=== PATIENT | male | born 1970 | race Caucasian/White ===

== ENCOUNTER 2018-02-05 10:24 | Emergency (ER) | payer OTHER ==
[~2018-02-05] VITALS: Ht 185.4 cm; Wt 120.2 kg
[~2018-02-05 10:24] MED LIST: ACYCLOVIR 800800 M1 PO; CEFDINIR300 MG PO; CIPROFLOXACIN500 M1 PO; CORTISPORIN OTI10 ML OTIC; ERYTHROMYCIN E3.5 G1 OPHTHALMIC; FLAGYL500 MG PO; FLONASE 0.05%50 MCG NASAL; IBUPROFEN 400400 M2 PO; IBUPROFEN 800800 M1 PO; IBUPROFEN 800800 MG PO; LEVAQUIN 500 M500 MG PO; LORTAB 5 MG/5001 TA1 PO; MAGNESIUM OXID400 MG PO; NOHOMEMEDICATIONS; PREDNISONE 20 M20 MG PO; PROVENTIL HFA6.7 G1 INH; TYLENOL COLD H1 EACH PO; UNICOMPLEX M TA1 TA1 PO; VITAMIN D1000 UNI1 PO; VITAMINC500 PO; ZINC50 M1 PO; ZPAK PO
[2018-02-05] MEDS ORDERED: PREDNISONE 5 MG5 M1 PO (11:14)
[2018-02-05] MEDS ORDERED: PREDNISONE 10 M10 M1 PO (11:51)
[2018-02-05 12:18] VITALS: BP 145/69
== END 2018-02-05 12:18 | disposition home or self-care (01) ==
LOC: ER 10:24
DX: M06.862 Other specified rheumatoid arthritis, left knee (principal); M06.861 Other specified rheumatoid arthritis, right knee; J45.909 Unspecified asthma, uncomplicated; Z88.0 Allergy status to penicillin

== ENCOUNTER 2018-08-23 21:17 | Emergency (ER) | payer BC ==
[~2018-08-23] VITALS: Ht 185.4 cm; Wt 120.2 kg
[~2018-08-23 21:17] MED LIST changes: +PREDNISONE 10 M10 M1 PO; +PREDNISONE 5 MG5 M1 PO
[2018-08-23] MEDS ORDERED: PREDNISONE 10 M10 MG PO (21:30)
[2018-08-23] MEDS ORDERED: [UNRECOGNIZED DRUG - OTHER] (21:31)
[2018-08-23] MEDS ORDERED: [UNRECOGNIZED DRUG - OTHER] (21:31)
[2018-08-23 21:57] LABS: MCH 30.9 pg (26.0-34.0); MCHC 35.7 g/dL (28.0-37.0); MCV 86.5 fL (80.0-100.0); PLATELET COUNT 157 thou/uL (150-400); RBC 4.85 mil/uL (4.50-6.00); RDW 13.9 % (10.5-14.5); WBC 4.3 thou/uL (4.0-11.0)
[2018-08-23 22:08] LABS: CREATININE 1.2 mg/dL (0.7-1.3); POTASSIUM 3.9 mmol/L (3.5-5.1)
[2018-08-23 22:13] LABS: ALBUMIN 3.6 g/dL (3.4-5.0); CALCIUM 8.6 mg/dL (8.5-10.1); TOTAL BILIRUBIN 0.6 mg/dL (<0.1-1.0); TOTAL PROTEIN 7.5 g/dL (6.4-8.2)
[2018-08-23 22:50] LABS: ABSOLUTE NEUTROPHILS 2.7 thou/uL (1.4-8.2); BLASTS 1 %; METAMYELOCYTES 3 %; MYELOCYTES 2 %
[2018-08-23 22:51] LABS: LARGE PLATELETS RARE
[2018-08-23] MEDS ORDERED: BENTYL 20 MG TA20 M1 PO (23:43)
[2018-08-23] MEDS ORDERED: CIPRO500 MG PO (23:44)
[2018-08-23] MEDS ORDERED: FLAGYL500 M1 PO (23:44)
[2018-08-23 23:48] LABS: URINE BILIRUBIN NEGATIVE (Negative); URINE BLOOD NEGATIVE (Negative); URINE CLARITY CLEAR; URINE COLOR YELLOW; URINE GLUCOSE-RANDOM* NEGATIVE (Negative); URINE KETONES NEGATIVE (Negative); URINE LEUKOCYTES-REFLEX NEGATIVE (Negative); URINE NITRITE-REFLEX NEGATIVE (Negative); URINE PROTEIN (DIPSTICK) NEGATIVE (Negative); URINE UROBILINOGEN 0.2 E.U./dl (0.2-1.0)
[2018-08-24 00:12] VITALS: BP 128/82
== END 2018-08-24 00:14 | disposition home or self-care (01) ==
LOC: ER 21:17
PROVIDERS: Nurse Practitioner Family
DX: K57.92 Diverticulitis of intestine, part unspecified, without perforation or abscess without bleeding (principal); N48.9 Disorder of penis, unspecified; J45.909 Unspecified asthma, uncomplicated; Z88.0 Allergy status to penicillin

== ENCOUNTER 2018-11-17 10:50 | Emergency (ER) | payer OTHER ==
[~2018-11-17] VITALS: Ht 185.4 cm; Wt 108.9 kg
[~2018-11-17 10:50] MED LIST changes: +BENTYL 20 MG TA20 M1 PO; +CIPRO500 MG PO; +FLAGYL500 M1 PO; +PREDNISONE 10 M10 MG PO; +[UNRECOGNIZED DRUG - OTHER]; +[UNRECOGNIZED DRUG - OTHER]
[2018-11-17] MEDS ORDERED: MEDROLDOSEPACK PO (11:21)
[2018-11-17 12:25] VITALS: BP 130/82
== END 2018-11-17 11:58 | disposition home or self-care (01) ==
LOC: ER 10:50
DX: M05.89 Other rheumatoid arthritis with rheumatoid factor of multiple sites (principal); J45.909 Unspecified asthma, uncomplicated; Z88.0 Allergy status to penicillin

== ENCOUNTER 2019-02-28 13:23 | Emergency (ER) | payer OTHER ==
[~2019-02-28] VITALS: Ht 177.8 cm; Wt 127.0 kg
[~2019-02-28 13:23] MED LIST changes: +MEDROLDOSEPACK PO
--- NOTE | 2019-02-28 14:01 | EKG ---
[place] [address] [facility] [place] [employer] [address] ELECTROCARDIOGRAM REPORT Name: PORSHA CLARKE [facility] [id number] ������������������ Admission: ������������������ Attend Phys: Discharge: ������������������ Date of : 70 Report #: [id number] ����������������������������������������������������������������� [id number] THIS REPORT FOR: //name// [facility] ED Test Date: 2019-02-28 Test Time: 13:30:28 Pat Name: PORSHA CLARKE Department: Room: Gender: M Interior Specialist: MARTHA : 1970 Requested By: Chester Molina Order Number: [id number] MD: Yobani Lord Measurements Intervals [place] Rate: 85 P: 38 [place]: 162 QRS: -45 QRSD: 87 T: 87 QT: 358 QTc: 426 Interpretive Statements Sinus rhythm RSR' in V1 or V2, probably normal variant Inferior infarct, old Lateral leads are also involved Compared to ECG 10/11/2014 02:40:42 RSR' in V1 or V2 now present Myocardial infarct finding now present Incomplete right bundle-branch block no longer present Electronically Signed On 02-28-2019 14:01:08 CDT by Yobani Lord [email or web address] ��������������������������������������������� <ELECTRONICALLY SIGNED> ���������������������������������������� By: Yobani Lord MD ��������������������������������������������� 02/28/19 1401 1330 1330 Yobani Lord MD /EPI
[2019-02-28 14:16] LABS: HEMATOCRIT 37.8 % (42.0-52.0); HEMOGLOBIN 12.7 gm/dL (14.0-18.0); MCHC 33.8 g/dL (28.0-37.0); MCV 85.8 fL (80.0-100.0); PLATELET COUNT 158 thou/uL (150-400); RDW 14.6 % (10.5-14.5); WBC 2.9 thou/uL (4.0-11.0)
[2019-02-28 14:26] LABS: PROTIME 9.4 Seconds (9.3-11.4)
[2019-02-28 14:33] LABS: ANION GAP 6 mmol/L (7-16); BUN 9 mg/dL (7-18); CHLORIDE 106 mmol/L (98-107); CO2 32 mmol/L (21-32); CREATININE 0.9 mg/dL (0.7-1.3); GLUCOSE 135 mg/dL (74-106); SODIUM 144 mmol/L (136-145)
[2019-02-28 14:44] LABS: ALBUMIN 3.2 g/dL (3.4-5.0); LIPASE 142 U/L (73-393); SGOT 15 U/L (15-37); SGPT 42 U/L (30-65); TOTAL BILIRUBIN 0.4 mg/dL (<0.1-1.0); TOTAL PROTEIN 7.2 g/dL (6.4-8.2); TROPONIN-I <0.06 ng/mL (<0.06)
[2019-02-28 14:53] LABS: ABSOLUTE NEUTROPHILS 1.9 thou/uL (1.4-8.2); ANISOCYTOSIS 1+
[2019-02-28] MEDS ORDERED: PREDNISONE 20 M20 MG PO (16:33)
[2019-02-28] MEDS ORDERED: VENTOLIN HFA 1818 GM INH (16:43)
[2019-02-28] MEDS ORDERED: REGLAN 5 MG TAB5 MG PO (16:57)
[2019-02-28 17:04] VITALS: BP 129/79
== END 2019-02-28 17:04 | disposition home or self-care (01) ==
LOC: ER 13:23
PROVIDERS: Physician Assistant
DX: R06.02 Shortness of breath (principal); R14.0 Abdominal distension (gaseous); J45.909 Unspecified asthma, uncomplicated; Z87.39 Personal history of other diseases of the musculoskeletal system and connective tissue; Z88.0 Allergy status to penicillin

== ENCOUNTER 2019-08-30 00:14 | Emergency (ER) | payer BC, OTHER ==
[~2019-08-30] VITALS: Ht 185.4 cm; Wt 124.7 kg
[~2019-08-30 00:14] MED LIST changes: +REGLAN 5 MG TAB5 MG PO; +VENTOLIN HFA 1818 GM INH
[2019-08-30 00:57] LABS: HEMATOCRIT 36.7 % (42.0-52.0); HEMOGLOBIN 12.4 gm/dL (14.0-18.0); MCH 29.1 pg (26.0-34.0); MCHC 33.8 g/dL (28.0-37.0); MCV 86.1 fL (80.0-100.0); RBC 4.26 mil/uL (4.50-6.00); RDW 14.2 % (10.5-14.5)
[2019-08-30 00:58] LABS: WBC 1.9 thou/uL (4.0-11.0)
[2019-08-30 01:05] LABS: CREATININE 1.1 mg/dL (0.7-1.3); POTASSIUM 3.7 mmol/L (3.5-5.1)
[2019-08-30 01:11] LABS: ALBUMIN 3.3 g/dL (3.4-5.0); TOTAL BILIRUBIN 0.8 mg/dL (<0.1-1.0); TOTAL PROTEIN 7.1 g/dL (6.4-8.2)
[2019-08-30] MEDS ORDERED: CLINDAMYCIN HC300 MG PO (02:46)
[2019-08-30 02:57] VITALS: BP 111/47
== END 2019-08-30 03:00 | disposition home or self-care (01) ==
LOC: ER 00:14
PROVIDERS: Emergency Medicine
DX: L03.116 Cellulitis of left lower limb (principal); J45.909 Unspecified asthma, uncomplicated; Z98.890 Other specified postprocedural states; Z88.0 Allergy status to penicillin

== ENCOUNTER 2019-10-24 11:55 | Emergency (ER) | payer OTHER ==
[~2019-10-24] VITALS: Ht 185.4 cm; Wt 120.2 kg
[~2019-10-24 11:55] MED LIST changes: +CLINDAMYCIN HC300 MG PO
[2019-10-24 11:57] VITALS: BP 130/84
[2019-10-24] MEDS ORDERED: DOXYCYCLINE 10100 MG PO (12:32)
== END 2019-10-24 12:50 | disposition home or self-care (01) ==
LOC: ER 11:55
DX: J18.9 Pneumonia, unspecified organism (principal); J45.909 Unspecified asthma, uncomplicated; Z98.890 Other specified postprocedural states; Z88.0 Allergy status to penicillin

== ENCOUNTER 2019-11-13 11:52 | Emergency (ER) | payer OTHER ==
[~2019-11-13] VITALS: Ht 185.4 cm; Wt 120.2 kg
[~2019-11-13 11:52] MED LIST changes: +DOXYCYCLINE 10100 MG PO
[2019-11-13 11:53] VITALS: BP 123/88
[2019-11-13 12:49] LABS: HEMATOCRIT 42.6 % (42.0-52.0); MCH 27.9 pg (26.0-34.0); MCHC 32.8 g/dL (28.0-37.0); MCV 85.2 fL (80.0-100.0); PLATELET COUNT 220 thou/uL (150-400); RDW 14.1 % (10.5-14.5); WBC 2.7 thou/uL (4.0-11.0)
[2019-11-13 12:59] LABS: CALCIUM 8.6 mg/dL (8.5-10.1); CREATININE 1.1 mg/dL (0.7-1.3); POTASSIUM 3.5 mmol/L (3.5-5.1)
[2019-11-13] MEDS ORDERED: PREDNISONE 10 M10 MG PO (13:45)
[2019-11-13 14:11] LABS: ABSOLUTE NEUTROPHILS 1.8 thou/uL (1.4-8.2); ANISOCYTOSIS 1+; MYELOCYTES 1 %
== END 2019-11-13 14:08 | disposition home or self-care (01) ==
LOC: ER 11:52
PROVIDERS: Physician Assistant
DX: I77.6 Arteritis, unspecified (principal); M06.9 Rheumatoid arthritis, unspecified; J45.909 Unspecified asthma, uncomplicated; Z79.2 Long term (current) use of antibiotics; Z79.899 Other long term (current) drug therapy; Z88.0 Allergy status to penicillin

== ENCOUNTER 2019-12-13 05:30 | Emergency (ER) | payer OTHER ==
[~2019-12-13] VITALS: Ht 185.4 cm; Wt 120.2 kg
[2019-12-13] MEDS ORDERED: VENTOLIN HFA 1818 GM INH (06:04)
[2019-12-13] MEDS ORDERED: PREDNISONE 10 M10 M1 PO (06:04)
[2019-12-13] MEDS ORDERED: DOXYCYCLINE 10100 MG PO (06:04)
[2019-12-13 06:14] VITALS: BP 129/85
== END 2019-12-13 06:15 | disposition home or self-care (01) ==
LOC: ER 05:30
DX: M13.861 Other specified arthritis, right knee (principal); M13.862 Other specified arthritis, left knee; J45.909 Unspecified asthma, uncomplicated; Z88.0 Allergy status to penicillin

== ENCOUNTER 2019-12-28 19:35 | Emergency (ER) | payer OTHER ==
[~2019-12-28] VITALS: Ht 185.4 cm; Wt 120.2 kg
[2019-12-28] MEDS ORDERED: CLEOCIN HCL150 MG PO (20:04)
[2019-12-28] MEDS ORDERED: PREDNISONE 20 M20 MG PO (20:04)
[2019-12-28 21:13] VITALS: BP 137/89
== END 2019-12-28 21:15 | disposition home or self-care (01) ==
LOC: ER 19:35
DX: L03.115 Cellulitis of right lower limb (principal); M05.20 Rheumatoid vasculitis with rheumatoid arthritis of unspecified site; J45.909 Unspecified asthma, uncomplicated; Z88.0 Allergy status to penicillin

== ENCOUNTER 2020-01-01 11:28 | Emergency (ER) | payer OTHER ==
[~2020-01-01] VITALS: Ht 180.3 cm; Wt 117.0 kg
[~2020-01-01 11:28] MED LIST changes: +CLEOCIN HCL150 MG PO
[2020-01-01 12:36] LABS: HEMATOCRIT 41.8 % (42.0-52.0); HEMOGLOBIN 14.2 gm/dL (14.0-18.0); MCH 28.7 pg (26.0-34.0); MCHC 34.1 g/dL (28.0-37.0); MCV 84.3 fL (80.0-100.0); PLATELET COUNT 200 thou/uL (150-400); RBC 4.95 mil/uL (4.50-6.00); RDW 14.7 % (10.5-14.5); WBC 9.3 thou/uL (4.0-11.0)
[2020-01-01 12:42] LABS: CALCIUM 8.6 mg/dL (8.5-10.1); CREATININE 1.2 mg/dL (0.7-1.3)
[2020-01-01 12:51] LABS: ABSOLUTE NEUTROPHILS 7.8 thou/uL (1.4-8.2); ATYPICAL LYMPHS 1 %; PLATELET ESTIMATE NORMAL
[2020-01-01] MEDS ORDERED: PREDNISONE 20 M20 MG PO (13:33)
[2020-01-01] MEDS ORDERED: GLUMETZA500 PO (13:38)
[2020-01-01 13:46] VITALS: BP 144/84
== END 2020-01-01 13:46 | disposition home or self-care (01) ==
LOC: ER 11:28
PROVIDERS: Emergency Medicine
DX: I77.6 Arteritis, unspecified (principal); R73.9 Hyperglycemia, unspecified; M06.9 Rheumatoid arthritis, unspecified; J45.909 Unspecified asthma, uncomplicated; Z98.890 Other specified postprocedural states; Z79.899 Other long term (current) drug therapy; Z79.2 Long term (current) use of antibiotics; Z88.0 Allergy status to penicillin

== ENCOUNTER 2020-03-25 14:31 | Emergency (ER) | payer OTHER ==
[~2020-03-25] VITALS: Ht 185.4 cm; Wt 119.8 kg
[~2020-03-25 14:31] MED LIST changes: +GLUMETZA500 PO
[2020-03-25 14:34] VITALS: BP 120/96
[2020-03-25] MEDS ORDERED: PREDNISONE 20 M20 M1 PO (15:18)
== END 2020-03-25 15:54 | disposition home or self-care (01) ==
LOC: ER 14:31
DX: M06.842 Other specified rheumatoid arthritis, left hand (principal); M06.841 Other specified rheumatoid arthritis, right hand; M06.862 Other specified rheumatoid arthritis, left knee; M06.861 Other specified rheumatoid arthritis, right knee; J45.909 Unspecified asthma, uncomplicated; Z88.0 Allergy status to penicillin; Z79.899 Other long term (current) drug therapy; Z79.2 Long term (current) use of antibiotics

== ENCOUNTER 2020-06-27 15:36 | Emergency (ER) | payer OTHER ==
[~2020-06-27] VITALS: Ht 185.4 cm; Wt 120.2 kg
[~2020-06-27 15:36] MED LIST changes: +PREDNISONE 20 M20 M1 PO
[2020-06-27 16:34] LABS: HEMATOCRIT 38.6 % (42.0-52.0); MCH 29.4 pg (26.0-34.0); MCHC 33.8 g/dL (28.0-37.0); MCV 87.2 fL (80.0-100.0); PLATELET COUNT 102 thou/uL (150-400); RBC 4.42 mil/uL (4.50-6.00)
[2020-06-27 16:44] LABS: CALCIUM 8.5 mg/dL (8.5-10.1); CREATININE 1.3 mg/dL (0.7-1.3); POTASSIUM 3.4 mmol/L (3.5-5.1)
[2020-06-27 16:47] LABS: INR 1.1; PROTIME 10.8 Seconds (9.3-11.4)
[2020-06-27 16:50] LABS: ALBUMIN 3.5 g/dL (3.4-5.0); TOTAL BILIRUBIN 1.3 mg/dL (0.2-1.0); TOTAL PROTEIN 7.7 g/dL (6.4-8.2)
[2020-06-27 17:05] LABS: ABSOLUTE NEUTROPHILS 1.4 thou/uL (1.4-8.2)
[2020-06-27 18:46] VITALS: BP 117/70
[2020-06-27] MEDS ORDERED: NORCO 5-325 TA1 EAC2 PO (18:49)
[2020-06-27] MEDS ORDERED: PREDNISONE 10 M10 M1 PO (18:49)
[2020-06-27] MEDS ORDERED: KEFLEX500 M1 PO (18:49)
== END 2020-06-27 18:55 | disposition home or self-care (01) ==
LOC: ER 15:36
PROVIDERS: Physician Assistant
DX: L03.115 Cellulitis of right lower limb (principal); I77.6 Arteritis, unspecified; J45.909 Unspecified asthma, uncomplicated; Z79.899 Other long term (current) drug therapy; Z88.0 Allergy status to penicillin

== ENCOUNTER 2020-07-14 10:00 | Emergency (ER) | payer OTHER ==
[~2020-07-14] VITALS: Ht 185.4 cm; Wt 117.9 kg
[~2020-07-14 10:00] MED LIST changes: +CLOTRIMAZOLE-BE15 GM TOP; +KEFLEX500 M1 PO; +NORCO 5-325 TA1 EAC2 PO
[2020-07-14 11:37] LABS: HEMOGLOBIN 12.7 gm/dL (14.0-18.0); MCH 29.6 pg (26.0-34.0); MCHC 34.3 g/dL (28.0-37.0); MCV 86.5 fL (80.0-100.0); PLATELET COUNT 197 thou/uL (150-400); RBC 4.28 mil/uL (4.50-6.00); RDW 13.9 % (10.5-14.5)
[2020-07-14 11:45] LABS: CALCIUM 8.1 mg/dL (8.5-10.1); CREATININE 1.2 mg/dL (0.7-1.3); POTASSIUM 3.8 mmol/L (3.5-5.1)
[2020-07-14 11:52] LABS: ALBUMIN 3.5 g/dL (3.4-5.0); DIRECT BILIRUBIN 0.2 mg/dL (<0.1-0.2); TOTAL BILIRUBIN 0.6 mg/dL (0.2-1.0); TOTAL PROTEIN 7.9 g/dL (6.4-8.2)
[2020-07-14 13:19] LABS: ABSOLUTE NEUTROPHILS 1.1 thou/uL (1.4-8.2); ANISOCYTOSIS SLIGHT
[2020-07-14] MEDS ORDERED: DOXYCYCLINE 10100 MG PO (14:58)
[2020-07-14] MEDS ORDERED: LASIX 40 MG TAB40 MG PO (15:02)
[2020-07-14 15:08] VITALS: BP 120/72
== END 2020-07-14 15:19 | disposition home or self-care (01) ==
LOC: ER 10:00
PROVIDERS: Nurse Practitioner
DX: I77.6 Arteritis, unspecified (principal); J45.909 Unspecified asthma, uncomplicated; Z79.899 Other long term (current) drug therapy; Z88.0 Allergy status to penicillin

== ENCOUNTER 2020-09-13 12:56 | Emergency (ER) | payer OTHER ==
[~2020-09-13] VITALS: Ht 185.4 cm; Wt 113.4 kg
[~2020-09-13 12:56] MED LIST changes: +LASIX 40 MG TAB40 MG PO
[2020-09-13 13:46] LABS: HEMATOCRIT 39.2 % (42.0-52.0); HEMOGLOBIN 13.1 gm/dL (14.0-18.0); MCHC 33.5 g/dL (28.0-37.0); MCV 83.7 fL (80.0-100.0); PLATELET COUNT 135 thou/uL (150-400); RBC 4.69 mil/uL (4.50-6.00); RDW 14.8 % (10.5-14.5)
[2020-09-13 13:49] LABS: WBC 0.7 thou/uL (4.0-11.0)
[2020-09-13 14:02] LABS: CALCIUM 8.9 mg/dL (8.5-10.1); CREATININE 1.3 mg/dL (0.7-1.3); POTASSIUM 3.5 mmol/L (3.5-5.1)
[2020-09-13 14:08] LABS: ALBUMIN 3.8 g/dL (3.4-5.0); TOTAL BILIRUBIN 1.8 mg/dL (0.2-1.0); TOTAL PROTEIN 7.9 g/dL (6.4-8.2)
[2020-09-13 14:36] LABS: ABSOLUTE NEUTROPHILS 0.2 thou/uL (1.4-8.2); ATYPICAL LYMPHS 2 %
[2020-09-13] MEDS ORDERED: ZPAK PO (16:16)
[2020-09-13] MEDS ORDERED: PREDNISONE 20 M20 M1 PO (16:16)
[2020-09-13] MEDS ORDERED: PROMETH-CODEIN 65 ML PO (16:16)
[2020-09-13 16:23] VITALS: BP 136/75
[2020-09-14] MEDS ORDERED: ELIQUIS5 M1 PO (20:03)
== END 2020-09-13 16:23 | disposition home or self-care (01) ==
LOC: ER 12:56
PROVIDERS: Physician Assistant
DX: M31.30 Wegener's granulomatosis without renal involvement (principal); K12.1 Other forms of stomatitis; J32.9 Chronic sinusitis, unspecified; J45.909 Unspecified asthma, uncomplicated; Z79.899 Other long term (current) drug therapy; Z88.0 Allergy status to penicillin

== ENCOUNTER 2020-09-14 16:19 | Emergency (ER) | payer OTHER ==
[~2020-09-14] VITALS: Ht 185.4 cm; Wt 113.4 kg
[~2020-09-14 16:19] MED LIST changes: +PROMETH-CODEIN 65 ML PO
[2020-09-14 17:32] LABS: HEMOGLOBIN 13.3 gm/dL (14.0-18.0); PLATELET COUNT 151 thou/uL (150-400)
[2020-09-14 17:33] LABS: HEMATOCRIT 39.6 % (42.0-52.0); MCH 28.4 pg (26.0-34.0); MCHC 33.7 g/dL (28.0-37.0); MCV 84.1 fL (80.0-100.0); RBC 4.71 mil/uL (4.50-6.00); RDW 14.9 % (10.5-14.5)
[2020-09-14 17:42] LABS: CALCIUM 8.8 mg/dL (8.5-10.1); CREATININE 1.5 mg/dL (0.7-1.3); POTASSIUM 3.5 mmol/L (3.5-5.1)
[2020-09-14 17:48] LABS: ALBUMIN 3.9 g/dL (3.4-5.0); TOTAL BILIRUBIN 1.5 mg/dL (0.2-1.0); TOTAL PROTEIN 8.2 g/dL (6.4-8.2)
[2020-09-14 17:56] LABS: ABSOLUTE NEUTROPHILS 0.1 thou/uL (1.4-8.2)
[2020-09-14 17:57] LABS: ANISOCYTOSIS 1+; LARGE PLATELETS OCCASIONAL; POLYCHROMASIA SLIGHT
[2020-09-14] MEDS ORDERED: ELIQUIS5 M1 PO (20:03)
[2020-09-14 20:15] VITALS: BP 129/73
--- NOTE | 2020-09-17 07:21 | EKG ---
[place] [address] [place] [address] ELECTROCARDIOGRAM REPORT Name: PORSHA CLARKE Room #: [facility] ZIGGY Moran#: [id number] Admission: 09/14/20 Attend Phys: Discharge: 09/14/20 Date of : 70 Report #: [id number] [facility] ED Test Date: 2020-09-14 Test Time: 17:30:47 Pat Name: PORSHA CLARKE Department: Room: Gender: M Sorority Supervisor: JENNIFER : 1970 Requested By: Chester Molina Order Number: [id number] MD: Enrique Seay Measurements Intervals [place] Rate: 98 P: 24 [place]: 157 QRS: -76 QRSD: 95 T: 37 QT: 389 QTc: 497 Interpretive Statements Sinus rhythm Inferior infarct, old Compared to ECG 02/28/2019 13:30:28 T wave abnormality is less prominent Electronically Signed On 09-17-2020 7:21:40 BACTERIOLOGIST [employer] by Enrique Seay [email or web address] <ELECTRONICALLY SIGNED> By: Enrique Seay MD, [facility] 09/17/20 0721 1730 1730 Enrique Seay MD, FAC /EPI
== END 2020-09-14 20:27 | disposition left against medical advice (07) ==
LOC: ER 16:19
PROVIDERS: Physician Assistant
DX: I26.99 Other pulmonary embolism without acute cor pulmonale (principal); J32.9 Chronic sinusitis, unspecified; D61.818 Other pancytopenia; M31.30 Wegener's granulomatosis without renal involvement; J45.909 Unspecified asthma, uncomplicated; Z79.899 Other long term (current) drug therapy; Z88.0 Allergy status to penicillin; Z20.828 Contact with and (suspected) exposure to other viral communicable diseases

== ENCOUNTER 2020-09-15 18:52 | Inpatient (IN) | payer MEDICAID ==
[~2020-09-15] VITALS: Ht 185.4 cm; Wt 119.3 kg
[~2020-09-15 18:52] MED LIST changes: +ELIQUIS5 M1 PO
[2020-09-15 18:55] VITALS: BP 143/74
[2020-09-15 20:06] LABS: HEMATOCRIT 36.4 % (42.0-52.0); HEMOGLOBIN 12.4 gm/dL (14.0-18.0); MCH 28.7 pg (26.0-34.0); MCV 84.4 fL (80.0-100.0); PLATELET COUNT 137 thou/uL (150-400); RBC 4.32 mil/uL (4.50-6.00); RDW 14.6 % (10.5-14.5)
[2020-09-15 20:09] LABS: CALCIUM 8.4 mg/dL (8.5-10.1); CREATININE 1.2 mg/dL (0.7-1.3); POTASSIUM 3.6 mmol/L (3.5-5.1)
[2020-09-15 20:26] LABS: APTT 31.6 Seconds (24.5-32.8)
[2020-09-15 21:11] VITALS: BP 102/45
[2020-09-15 21:18] LABS: ABSOLUTE NEUTROPHILS 0.1 thou/uL (1.4-8.2); ATYPICAL LYMPHS 2 %
[2020-09-15 21:19] LABS: ANISOCYTOSIS 1+; LARGE PLATELETS OCCASIONAL; POLYCHROMASIA OCCASIONAL
[2020-09-15 22:00] VITALS: BP 107/47
[2020-09-15 22:15] VITALS: BP 121/75
--- NOTE | 2020-09-16 02:58 | NUR ---
RECIEVED PT FROM ED ARRIVAL TO UNIT PT ALERT ORIENTED X4 , PT DENIES SOA , UP AMBULATED TO BATHROOM , PRESSER ALL AROUND NSR NOTED VSS, DISCUSSED PLAN OF CARE, PT VERBALIZED UNDERSTANDING AND AGREEABLE, JUNIOR SHEPHERD
[2020-09-16 04:45] VITALS: BP 126/75
[2020-09-16 12:16] VITALS: BP 126/80
[2020-09-16 15:03] VITALS: BP 124/76
[2020-09-16 20:34] VITALS: BP 115/72
[2020-09-16 20:42] VITALS: BP 102/45
[2020-09-17 03:37] LABS: HEMATOCRIT 35.9 % (42.0-52.0); MCH 28.2 pg (26.0-34.0); MCHC 33.4 g/dL (28.0-37.0); MCV 84.5 fL (80.0-100.0); RBC 4.25 mil/uL (4.50-6.00); RDW 14.8 % (10.5-14.5)
[2020-09-17 03:46] VITALS: BP 104/59
[2020-09-17 03:46] LABS: CALCIUM 8.3 mg/dL (8.5-10.1); POTASSIUM 4.1 mmol/L (3.5-5.1)
[2020-09-17 03:51] LABS: WBC 0.9 thou/uL (4.0-11.0)
--- NOTE | 2020-09-17 04:15 | NUR ---
PT IS ALERT AND ORIENTED X4 LUNGS ARE CLEAR . COMPLAINS OF PAIN IN HIS CHEECK LEFT ONE. PAIN MEDS GIVEN LITTLE RELIEF AND SOME SLEEP NOTED WITH PT AT THIS TIME. ABDOMEN IS SOFT. HAS NEUROPENIA TOO WITH LABS NOTED THIS AM. WILL REPORT CRITITICAL LAB NOTED. CALL LIGHT WITHIN REACH IF NEEDS ASISTANCE
[2020-09-17 07:38] VITALS: BP 118/81
[2020-09-17 08:24] LABS: % SATURATION 17 % (20-39); IRON 49 ug/dL (65-175); TIBC 284 ug/dL (250-450)
[2020-09-17 08:54] LABS: FOLIC ACID 6.4 ng/mL (8.6-58.9)
--- NOTE | 2020-09-17 10:46 | NUR ---
50 year old male presenting to the ED with worsening dyspnea. Pt was seen int the ED on the and of this month with oral ulcers and with dyspnea/diaphoresis, was found to have bilateral PE's but left AMA out of concern for health costs on 09-15-20. COVID PCR Negative on 09-14-20. Patient admitted to Hospitalist Dr. Huizar and is being treated for Bilateral small non-occlusive PE, Leucopenia, Asthma, oral lesions, Chronic neutropenia. Patient currently works at [employer] but does not have insurance. Patients lists his father Manny Murray at [phone] or [phone] as contact and next of kin but noted in the medical record the patient is documented as A&O x4. Notified Attending at 1045 of need for therapy orders to evaluate needs. CM will follow for discharge needs.
[2020-09-17 11:09] VITALS: BP 121/67
[2020-09-17 14:01] LABS: HEMATOCRIT 34.9 % (42.0-52.0); HEMOGLOBIN 11.8 gm/dL (14.0-18.0); MCH 28.3 pg (26.0-34.0); MCHC 33.7 g/dL (28.0-37.0); MCV 84.1 fL (80.0-100.0); PLATELET COUNT 129 thou/uL (150-400); RBC 4.15 mil/uL (4.50-6.00); RDW 14.6 % (10.5-14.5)
[2020-09-17 14:07] LABS: WBC 1.1 thou/uL (4.0-11.0)
[2020-09-17 14:51] LABS: ABSOLUTE NEUTROPHILS 0.3 thou/uL (1.4-8.2); ANISOCYTOSIS 1+; LARGE PLATELETS FEW; POLYCHROMASIA OCCASIONAL
[2020-09-17 15:55] VITALS: BP 123/73
[2020-09-17 20:36] VITALS: BP 130/73
--- NOTE | 2020-09-18 04:03 | NUR ---
Assumed pt care at 1900. Pt is alert and oriented. No sign of distress noted in pt. Pt verbalizes pain. Pain med administered upon request. Pt is ambulatory. Assessment completed and documented. Scheduled meds administered to pt. No acute events overnight. Continue to monitor. No further needs at this time.
[2020-09-18 04:19] VITALS: BP 124/87
--- NOTE | 2020-09-18 07:20 | HC ---
[facility] [place] [address] CONSULTATION Name: PORSHA CLARKE Room #: 209-P ADM IN M.R.#: [id number] Admission: 09/15/20 Attend Phys: Surinder Huizar MD Discharge: Date of : 70 Report #: [id number] THIS REPORT FOR: cc: FAM - No family physician/PCP FAM - No family physician/PCP Noe Aguilar MD ~ DATE OF SERVICE: 09/17/2020 REASON FOR CONSULTATION: Cytopenia of at least 10 years' duration. HISTORY OF PRESENT ILLNESS: The patient is a very pleasant 50-year-old from the [place] area, who was admitted to the Emergency Room for shortness of breath. On evaluation, found small nonocclusive bilateral PE. The patient notably has a history of low white count with an ANC in 2013 at 700, in 2014 ranged between 800 and 1200, in 2018 was 4300 on one measure, in 2019 was 1.9-2.9, on admission here 0.9. Hemoglobin has been stable, usually 12-13 or 14 during this time. Platelets in the past 135,000-200,000; recently 120,000 with no acute forms. The patient says that he was first found out about low blood counts in 2009 when he was at [facility]. He has also had trouble with infections requiring antibiotics 4-5 times a year, usually due to skin or sinus infections. He said someone had mentioned Oscar's, but he is not sure about that. Recently, he does have occasional headaches. No eye troubles. Does have some recent mouth sores on his left tip of tongue and right upper buccal mucosa, which he has not had before. No new blood in the urine or stool. Weight is about the same. He was aware of previous spleen and liver enlargement before. Also noted in 2014, he had cocaine positive on the urine drug screen. 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 SOCIAL HISTORY: No tobacco use. Had abused illicit drugs in the past, none recently. 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 He played basketball in high school. FAMILY HISTORY: Sperm donor dad ____ diabetes. Mother has psoriasis. I think he had mentioned one son without specific illnesses. MEDICATIONS: Here at this time in the hospital currently include apixaban 5 b.i.d., Benadryl p.r.n., lidocaine p.r.n., ____ magic mouthwash, also hydrocodone p.r.n., prednisone 40 with dinner, Pepcid 20 b.i.d., albuterol respiratory treatment, also the apixaban was begun as 10 b.i.d. for the first 14 [facility] [address] [place] [address] CONSULTATION Name: PORSAH CLARKE Vandana Room #: 209-P ADM IN M.R.#: [id number] Admission: 09/15/20 Attend Phys: Surinder Huizar MD Discharge: Date of : 70 Report #: [id number] doses, Zofran p.r.n. PHYSICAL EXAMINATION: GENERAL: The patient appears his stated age. VITAL SIGNS: Height is 6 feet 1 inch or 185.4 cm. Weight 263 pounds or 117.9 kilograms. Blood pressure is 118/81, O2 sat 97%, respirations 17, pulse 58, temperature afebrile at 97.7. MOOD: Alert, pleasant, conversant. NEUROLOGIC: Face is symmetrical. Speech and thought pattern normal. Moving all extremities. Oral notable for a small ulceration in the left tip of tongue and also right upper buccal mucosa. LYMPHATICS: No enlarged lymph nodes in the supraclavicular, cervical, axillary or inguinal region. ABDOMEN: Obese, maybe hepatomegaly, not sure about splenomegaly on exam. EXTREMITIES: Without clubbing or cyanosis. SKIN: Exam not performed today. LABORATORY DATA: As mentioned above. Also, note the liver functions were normal. Coags were normal. BUN 13, creatinine 1.0. Glucose 210. CT exam showed small nonocclusive bilateral pulmonary emboli and hepatosplenomegaly. Note that scan in 2019 showed a spleen of 17.4 cm, and in 2015, a spleen of 17 cm. ASSESSMENT AND PLAN: 1. Cytopenia, sounds autoimmune. We will consult Dr. Jagjit Holbrook for his thoughts. Could consider bone marrow biopsy. We will also check B12, folate, iron and do a peripheral smear review. 2. Bilateral nonocclusive pulmonary embolism. Agree with apixaban, but at least treat for 3-6 months. May consider longer lower dose after that if medically available due to chronic inflammation and high risk for future clots. 3. 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 The patient on steroids. We will defer to Dr. Holbrook and others. We will follow with you. <ELECTRONICALLY SIGNED> By: Noe Aguilar MD 09/18/20 0720 0810 0843 Noe Aguilar MD /olvin
[2020-09-18 08:11] VITALS: BP 117/69
[2020-09-18 10:35] LABS: HEMATOCRIT 36.2 % (42.0-52.0); HEMOGLOBIN 12.2 gm/dL (14.0-18.0); MCH 28.2 pg (26.0-34.0); MCHC 33.7 g/dL (28.0-37.0); MCV 83.8 fL (80.0-100.0); PLATELET COUNT 128 thou/uL (150-400); RBC 4.32 mil/uL (4.50-6.00); RDW 14.7 % (10.5-14.5)
[2020-09-18 10:45] LABS: PROTIME 10.6 Seconds (9.3-11.4)
[2020-09-18 10:55] LABS: ALBUMIN 3.2 g/dL (3.4-5.0); DIRECT BILIRUBIN 0.2 mg/dL (<0.1-0.2); TOTAL BILIRUBIN 0.7 mg/dL (0.2-1.0); TOTAL PROTEIN 7.1 g/dL (6.4-8.2); WBC 0.9 thou/uL (4.0-11.0)
[2020-09-18 11:22] LABS: ABSOLUTE NEUTROPHILS 0.2 thou/uL (1.4-8.2); METAMYELOCYTES 2 %; MYELOCYTES 1 %
[2020-09-18 11:23] LABS: ANISOCYTOSIS 1+
[2020-09-18 11:37] VITALS: BP 111/69
[2020-09-18 15:00] VITALS: BP 104/63
--- NOTE | 2020-09-18 17:04 | NUR ---
Met with patient who admits with bilateral PE. Patient resides alone and not employed. he is hoping to rec disability. Patient has no PCP. Gave clinic information and health resource guide. Requested he make apt prior to leaving hospital. Gave him information on Eliquis. Encouraged him to call their support line. [facility]ur will be able to assist initially.
--- NOTE | 2020-09-18 18:32 | NUR ---
RECEIVED PT'S CARE AROUND 0735; PT. ON BED; RESTING WITH EYES CLOSED; SLEEP INTERRUPTED; ALERT; DURING AM AOX4; C/O PAIN OVER R. CHEEK; PRN PAIN MEDICATION GIVEN WITH AM MEDICATIONS; PER DR. CORRALES HOLD BLOOD THINNER PO MEDICATION UNTIL BONE MARROW PERFORM ON 09/19/2019; ONE TIME LOVENOX GIVEN PER EMAR; PT. NOTIFIED; ST. UNDERSTANDING; GONE FOR CT DURING AM; PRN PAIN MEDICATION GIVEN THROUGH THE DAY; REASSESSMENT PT. ST. DECREASE PAIN FOR ABOUT ONE AND HALF HOURS AND PAIN RETURN; STOOL SAMPLE NEEDED; PT. NOTIFIED; ST. UNDERSTANDING; AMBULATED AROUND THE UNIT DURING THE EVENING; SR ON THE MONITOR; ASSESSMENT CHARGED; FOLLOWING POC; WILL PASS ON REPORT;
[2020-09-18 20:25] VITALS: BP 122/75
--- NOTE | 2020-09-19 03:45 | NUR ---
1900, PT ALERT AND ORIENTED. DENIES CHEST DISCOMFORT BUT REPORTS EXTREME RIGHT CHICK PAIN. PT RATES PAIN AT 8-10/10 CONSTANTLY. HYDROCODONE PRN Q6 GIVEN. PT NOTED TO HAVE AN OPEN SORE TO THE RIGHT UPPER GUM. PT REPORTS SWALLOWING CONSTANTLY, OF WHICH HE BELIEVES THE DRAINAGE COULD BE COMING FROM THE SORE. PICTURE TAKEN. PLATE CLEANER MANUSCRIPT READER NOTIFIED. NO ORDERS RECEIVED. PRIMARY PHYSICIAN TO BE NOTIFIED FOR POSSIBLE ENT CONSULT. NO FURTHER C/O AT THIS TIME. WILL CONTINUE WITH PAIN MANAGEMENT, AND FOLLOW POC.
[2020-09-19 08:15] VITALS: BP 123/82
[2020-09-19] MEDS ORDERED: FLAGYL500 M1 PO (09:38)
[2020-09-19] MEDS ORDERED: HYDROCODON-ACE1 EAC7 PO ×2 (09:38→16:54)
[2020-09-19 09:52] LABS: HEMATOCRIT 38.7 % (42.0-52.0); HEMOGLOBIN 12.9 gm/dL (14.0-18.0)
[2020-09-19 09:54] LABS: MCH 28.1 pg (26.0-34.0); MCHC 33.3 g/dL (28.0-37.0); MCV 84.5 fL (80.0-100.0); RBC 4.58 mil/uL (4.50-6.00); RDW 15.1 % (10.5-14.5)
[2020-09-19 09:59] LABS: WBC 1.6 thou/uL (4.0-11.0)
[2020-09-19 11:00] VITALS: BP 122/74
[2020-09-19 11:15] VITALS: BP 111/64
[2020-09-19 11:30] VITALS: BP 108/59
[2020-09-19] MEDS ORDERED: ELIQUIS5 M1 PO (11:36)
--- NOTE | 2020-09-19 11:56 | NUR ---
RECEIVED PT'S CARE AROUND 0715; PT. ON BED RESTING WITH EYES CLOSED; DURING AM ASSESSMENT PT. AOX4; NPO; SCHEDULED LATER ON THE DAY FOR PROCEDURE; PER PT. REQUESTED PRN PAIN MEDICATION; MINERAL RESOURCES INSPECTOR NOT NOTIFIED; EDUCATED NOT ABLE TO GET PRN PAIN MEDICATION BEFORE PROCEDURE; UPSET; GONE FOR PROCEDURE; BACK AROUND 1100; C/O PAIN OVER R. CHEEK; REQUESTED PRN PAIN MEDICATION; PER REPORT PT. RECEIVED 100 MCG FENTANYL DURING PROCEDURE; ST. FENTANYL DID NOT HELP FOR HIS PAIN; VS WNL; PRN PAIN MEDICATION GIVEN; SR ON THE MONITOR; D/C ORDERS ON PLACED; PT. NOTIFIED; EDUCATED ABOUT D/C PROCESS; ST. UNDERSTANDING; COMMUNICATE; COMMUNICATE MINERAL RESOURCES INSPECTOR RIDE WILL ARRIVE AT 1300; PER TRIM AND BURR OPERATOR RX BEING REFILL AT OUTPT. PHARMACY; RX MIGHT NOT BE AVAILABLE AT 1300; [facility] UNDERSTANDING; ST. HE CAN COME BACK FOR RX DUE TO "LIVE TWO BLOCKS AWAY"; MINERAL RESOURCES INSPECTOR AND TRIM AND BURR OPERATOR [facility] [place]; ASSESSMENT CHARGED; FOLLOWING POC; WILL WORK ON D/C ORDERS;
[2020-09-19 12:43] VITALS: BP 108/59
[2020-09-19 13:13] VITALS: BP 108/59
[2020-09-19 14:07] LABS: CERULOPLASMIN 22.6 mg/dL (16.0-31.0)
--- NOTE | 2020-09-19 14:28 | NUR ---
Patient to dc home on eliquis. Vouched for approx $472.68 for month supply. Patient has not made apt for medical phys at clinic. Encouraged need to make apt luz elena. Patient to dc home no further needs
[2020-09-19 15:09] LABS: HAV IgM AB (ANTI-HAV IgM) Negative (Negative); HEPATITIS B SURFACE AG Negative (Negative); HEPATITIS C VIRUS AB 0.2 (0.0-0.9)
== END 2020-09-19 13:35 | disposition home or self-care (01) | DRG 542 ==
LOC: ER 18:52 → EROBS 20:04 → 2N 20:04
PROVIDERS: Emergency Medicine; Internal Medicine Hematology & Oncology; Nurse Practitioner; Radiology Diagnostic Radiology; Radiology Vascular & Interventional Radiology; ADMIT Hospitalist; ATTEND Hospitalist
PROC: 07DR3ZX Extraction of Iliac Bone Marrow, Percutaneous Approach, Diagnostic (ICD-10-PCS; principal; 2020-09-19)
DX: M31.30 Wegener's granulomatosis without renal involvement (principal); I26.99 Other pulmonary embolism without acute cor pulmonale; D61.818 Other pancytopenia; J45.909 Unspecified asthma, uncomplicated; K12.0 Recurrent oral aphthae; D75.9 Disease of blood and blood-forming organs, unspecified; K76.0 Fatty (change of) liver, not elsewhere classified; R16.2 Hepatomegaly with splenomegaly, not elsewhere classified; E61.1 Iron deficiency; K14.0 Glossitis; Z88.0 Allergy status to penicillin; Z79.899 Other long term (current) drug therapy; Z79.51 Long term (current) use of inhaled steroids
CPT/HCPCS: 10081

== ENCOUNTER 2020-09-25 18:21 | Emergency (ER) | payer OTHER ==
[~2020-09-25] VITALS: Ht 185.4 cm; Wt 117.9 kg
[~2020-09-25 18:21] MED LIST changes: +HYDROCODON-ACE1 EAC7 PO
[2020-09-25 18:27] VITALS: BP 163/94
[2020-09-26] MEDS ORDERED: KEFLEX500 M1 PO (00:34)
[2020-09-26] MEDS ORDERED: FLAGYL500 M1 PO (01:54)
[2020-09-26] MEDS ORDERED: LIDOCAINE VISC100 ML SWISH&SPIT (04:07)
[2020-09-26] MEDS ORDERED: BENADRYL A12.5 MG/5 SWISH&SPIT (04:07)
== END 2020-09-25 20:24 | disposition left against medical advice (07) ==
LOC: ER 18:21
DX: R13.10 Dysphagia, unspecified (principal); R10.9 Unspecified abdominal pain; Z53.21 Procedure and treatment not carried out due to patient leaving prior to being seen by health care provider

== ENCOUNTER 2020-09-26 00:23 | Emergency (ER) | payer MEDICAID ==
[~2020-09-26] VITALS: Ht 185.4 cm; Wt 117.9 kg
[2020-09-26] MEDS ORDERED: KEFLEX500 M1 PO (00:34)
[2020-09-26 01:30] LABS: HEMOGLOBIN 11.7 gm/dL (14.0-18.0)
[2020-09-26 01:31] LABS: MCH 27.7 pg (26.0-34.0); MCHC 33.4 g/dL (28.0-37.0); RBC 4.22 mil/uL (4.50-6.00); RDW 14.2 % (10.5-14.5)
[2020-09-26 01:36] LABS: WBC 1.4 thou/uL (4.0-11.0)
[2020-09-26 01:39] LABS: CALCIUM 8.6 mg/dL (8.5-10.1); CREATININE 1.2 mg/dL (0.7-1.3); POTASSIUM 4.6 mmol/L (3.5-5.1)
[2020-09-26 01:41] LABS: PROTIME 10.7 Seconds (9.3-11.4)
[2020-09-26] MEDS ORDERED: FLAGYL500 M1 PO (01:54)
[2020-09-26 03:59] VITALS: BP 129/65
[2020-09-26] MEDS ORDERED: LIDOCAINE VISC100 ML SWISH&SPIT (04:07)
[2020-09-26] MEDS ORDERED: BENADRYL A12.5 MG/5 SWISH&SPIT (04:07)
== END 2020-09-26 04:26 | disposition home or self-care (01) ==
LOC: ER 00:23
PROVIDERS: Emergency Medicine
DX: K12.0 Recurrent oral aphthae (principal); E87.2 Acidosis; D70.9 Neutropenia, unspecified; I77.6 Arteritis, unspecified; J45.909 Unspecified asthma, uncomplicated; Z98.890 Other specified postprocedural states; Z79.899 Other long term (current) drug therapy; Z79.2 Long term (current) use of antibiotics; Z88.0 Allergy status to penicillin

== ENCOUNTER 2020-12-04 18:18 | Inpatient (IN) | payer MEDICAID ==
[~2020-12-04] VITALS: Ht 185.4 cm; Wt 112.5 kg
--- NOTE | ~2020-12-04 | O ---
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 PROCEDURES: 1. Bilateral endoscopic total ethmoidectomy. 2. Bilateral endoscopic maxillary antrostomy tissue removed from maxillary sinus. 3. Bilateral endoscopic sphenoidotomy. 4. Bilateral endoscopic frontal sinus duct exploration. 5. Debridement of left lateral wall granuloma with biopsy. DESCRIPTION OF PROCEDURE: The patient was brought to the operating room and placed in supine position. General anesthesia was obtained. Mask inhalation was provided. Laryngeal mask was inserted. The patient was prepped and draped for nasal surgery. A 1% lidocaine with 1:100,000 epinephrine was infiltrated into the inferior turbinates, middle turbinates and middle meatus bilaterally. A 4% cocaine pledgets were placed intranasally. After anesthesia and decongestion are achieved, the pledget is removed. The left nasal cavity is examined. He has a crusting area of necrotic tissue with granulation present at the anterior nasal cavity. The nasal vestibule just anterior to the inferior turbinate head extending into the nasal vestibule and amongst the bursae hairs, this is debrided utilizing a Blakesley forcep. Biopsies were taken utilizing a Blakesley forcep and sent for permanent pathology. The left middle turbinate was medialized and ____ removed with upbiting [place], total ethmoidectomy proceeded from medial, anterior, superior and lateral to the roof of the ethmoids. ____ posteriorly to the sphenoid face. The maxillary enterotomies is enlarged, anterior and posterior straight and upbiting [place]y, tissue was removed from the maxillary antrum utilizing ____ instrumentation. Sphenoidotomy is performed medial to the middle turbinate and enlarged superiorly and laterally into the posterior ethmoid area. Agger nasi cells removed anteriorly, the frontal sinus duct identified and followed anteriorly to preserve mucosa along the superior ethmoid roof. He has a significant septal perforation, which is quarter-sized, the procedures were duplicated on the patient's right side including total ethmoidectomy, maxillary enterotomy, tissue removed from maxillary sinus, sphenoidotomy and frontal sinus duct exploration. All of the [facility] [address] [place] [address] OPERATIVE REPORT Name: PORSHA CLARKE Room #: 448-P DIS IN M.R.#: [id number] Admission: 12/04/20 Attend Phys: Surinder Huizar MD Discharge: 12/07/20 Date of : 70 Report #: [id number] contents were sent via ____ from the suction as well as the biopsy that was taken from the left lateral wall with deeper tissue in hopes that vasculitis can be further characterized. The ethmoid cavities were ____ impregnated with mupirocin ointment. Mupirocin ointment was also used on the lateral wall inferiorly in the anterior naris nasal cavity. The patient is awoken from anesthesia and transferred to recovery room stable. He will follow up with me in 2 weeks. He is to use Glenvil for pain, clindamycin as an antibiotic. By: 1227 1358 Marcello Smith MD /nt
[~2020-12-04 18:18] MED LIST changes: +BENADRYL A12.5 MG/5 SWISH&SPIT; +LIDOCAINE VISC100 ML SWISH&SPIT
[2020-12-04 18:20] VITALS: BP 139/91
[2020-12-04 18:50] LABS: HEMOGLOBIN 13.1 gm/dL (14.0-18.0)
[2020-12-04 18:52] LABS: HEMATOCRIT 38.7 % (42.0-52.0); MCH 27.7 pg (26.0-34.0); MCHC 33.7 g/dL (28.0-37.0); MCV 82.1 fL (80.0-100.0); PLATELET COUNT 179 thou/uL (150-400); RBC 4.72 mil/uL (4.50-6.00); RDW 15.5 % (10.5-14.5)
[2020-12-04 18:54] LABS: WBC 0.7 thou/uL (4.0-11.0)
[2020-12-04 19:43] LABS: CALCIUM 8.3 mg/dL (8.5-10.1); CREATININE 1.4 mg/dL (0.7-1.3); POTASSIUM 3.6 mmol/L (3.5-5.1)
[2020-12-04 20:22] LABS: ABSOLUTE NEUTROPHILS 0.1 thou/uL (1.4-8.2)
[2020-12-04 20:26] LABS: ANISOCYTOSIS 2+; MICROCYTES 1+; POLYCHROMASIA 1+
[2020-12-04 20:27] LABS: LARGE PLATELETS FEW
[2020-12-04 23:04] VITALS: BP 111/58
[2020-12-04 23:05] VITALS: BP 111/58
[2020-12-04 23:42] VITALS: BP 116/67
[2020-12-04 23:54] VITALS: BP 116/68
--- NOTE | 2020-12-05 01:25 | NUR ---
PT ARRIVED FROM ER 2345 ADMISSION DONE AND PT ORIENTED TO THE UNIT. IV INTA FLUIDS AND ABX INFUSING. PT UP AD ADAM TO THE BATHROOM. C/O OF PAIN IN LEFT NARES AND HEAD TYLENOL GIVEN. BRUISED BLE FROM PREVIOUS CELLUITIS. LUNGS CLEAR AND NO FURTHER SIGNS OF DISCOMFORT WILL CONT TO MONITOR.
[2020-12-05 04:44] VITALS: BP 122/81
[2020-12-05 05:37] LABS: HEMATOCRIT 30.3 % (42.0-52.0); MCH 27.7 pg (26.0-34.0); MCHC 34.3 g/dL (28.0-37.0); MCV 80.9 fL (80.0-100.0); RBC 3.75 mil/uL (4.50-6.00); RDW 15.3 % (10.5-14.5)
[2020-12-05 05:43] LABS: HEMOGLOBIN 10.4 gm/dL (14.0-18.0)
[2020-12-05 05:44] LABS: WBC 0.7 thou/uL (4.0-11.0)
[2020-12-05 05:57] LABS: ALBUMIN 2.7 g/dL (3.4-5.0); CALCIUM 7.6 mg/dL (8.5-10.1); CREATININE 1.1 mg/dL (0.7-1.3); POTASSIUM 3.6 mmol/L (3.5-5.1); TOTAL BILIRUBIN 0.9 mg/dL (0.2-1.0); TOTAL PROTEIN 6.8 g/dL (6.4-8.2)
[2020-12-05 07:45] VITALS: BP 107/59
--- NOTE | 2020-12-05 13:33 | NUR ---
ASSESSMENT: CM REVIEWED CHART AND SPOKE WITH PATIENT. PT IS ALERT AND ORIENTED X4. PT WAS ADMITTED DUE TO FACIAL CELLULITIS. PT REPORTS THAT HE LIVES ALONE. PT IS FULLY INDEPENDENT WITH ADLS AND AMBULATION. PT IS CURRENTLY UNEMPLOYED AND HAS NO INSURANCE. PT REQUEST TO FOLLOW UP SOMEONE WAS HELPING HIM WITH MEDICAID/DISBAILITY. CM NOTIFIED MED-ASSIST AND PROVIDED PATIENT WITH THEIR CONTACT NUMBER. PER MED ASSIST PATIENTS MICHAELA IS PENDING AND THEY WILL DISCUSS WITH HIM. PT REPORTS HE HAS NOT BEEN COMPLIANT WITH HIS MEDICATIONS HE HAS TROUBLE WITH THE COST. CM WILL CONTINUE TO FOLLOW AND PT WILL NEED ASSISTANCE WITH MEDICATIONS AT TIME OF DISCHARGE. CM WILL ALSO PROVIDE PATIENT WITH SAFETY NET CLINICS AND OUTPATIENT RESOURCES.
[2020-12-05 13:35] VITALS: BP 107/59
[2020-12-05 15:55] VITALS: BP 130/77
--- NOTE | 2020-12-05 18:30 | NUR ---
PT ASSESSED AT START OF SHIFT. PT VERY UNCOMFORTABLE W/ NASAL INFECTION. ENT CONSULTED AND PHONE ORDER OBTAINED FOR IV STROIDS UNABLE TO SEE PT UNTIL AM. PAIN BETTER AFTER STEROID STARTED. UP IN THE RECLINER MOST OF DAY. ABLE TO EAT PRETTY WELL TODAY. VOIDED ADEQUATE AMTS.
[2020-12-05 20:10] VITALS: BP 136/64
--- NOTE | 2020-12-06 00:14 | NUR ---
ASSESSMENT COMPLETED. PT IS ALERT AND ORIENTED. UP AD ADAM IN ROOM. VOIDING WELL PER URINAL. SWELLING NOTED TO LEFT NARE AND LEFT UPPER LIP.PT REPORTS PAIN AT A 9/10 AND RELIEF BEST OBTAINED TO 5/10. PT MOSTLY OBSERVED SLEEPING. HE GETS NIGHT SWEATS-AND REPORTS THE SAME DURING THE DAY WHEN HE NAPS.AFEBRILE. REMAINS ON ROOM AIR, NO SIGNS OF RESP DISTRESS-I/S AVAILABLE FOR USE W/A.CONTINUES ON IV ABTS/FLUIDS/STEROIDS.WILL CONTINUE WITH POC TILL EOS.
[2020-12-06 08:13] VITALS: BP 112/72
--- NOTE | 2020-12-06 11:54 | NUR ---
Assumed care of pt at 0700. Pt a&ox4. Pain controlled with prn pain meds. Up ad loc. RA. No nasal drainage this am. IVF and IV antibiotics infusing. Rheumatology consulted. Call light within reach. Will continue to monitor.
--- NOTE | 2020-12-06 12:25 | HC ---
[facility] [place] [address] CONSULTATION Name: PORSHA CLARKE Room #: 448-P ADM IN M.R.#: [id number] Admission: 12/04/20 Attend Phys: Surinder Huizar MD Discharge: Date of : 70 Report #: [id number] THIS REPORT FOR: cc: FAM - No family physician/PCP FAM - No family physician/PCP Rell Barth MD ~ DATE OF SERVICE: 12/05/2020 INFECTIOUS DISEASE CONSULTATION ATTENDING PHYSICIAN: Dr. Bejarano. REASON FOR EVALUATION: Inflammatory eruption involving the left facial site complicated by cellulitis and likely early developing abscess. HISTORY OF PRESENT ILLNESS: Chart reviewed, patient examined. This is a 50-year-old gentleman. Apparently, he has some previously undiagnosed episodic neutropenia. Note, he had undergone bone marrow testing. He has had multiple episodes of previous skin and soft tissue infection with abscesses. 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 He presents with complaints of painful site involving the left naris, extending on to the face. He does admit to pain associated in the periorbital region. There is some associated photophobia, onset within the last few days. He notes he has had previous similar type episodes, although not involving the face. ____ evaluation, he was found to have a total white count of 700 with an ANC of 100. CT of the facial bones showed cellulitis and possible phlegmon formation involving the left inferior nares extending posterior to the maxilla without bony erosion or abscess, pansinusitis with a left cervical lymph nodes, felt to be reactive. Culture was collected. There are no white cells, few Gram-positive cocci. He was empirically started on combination therapy with vancomycin and clindamycin. ALLERGIES: Listed to PENICILLIN, IT IS UNCLEAR TO WHAT REACTION MAY HAVE OCCURRED, NOTED APPARENTLY THIS IS FROM CHILDHOOD. CURRENT MEDICATIONS: Include clindamycin, vancomycin, p.r.n. analgesics, apixaban, ondansetron as needed. PAST MEDICAL HISTORY: Asthma, history of episodic neutropenia, history of diverticulitis, previous history of PE. SOCIAL HISTORY: Nonsmoker, no ethanol, no illicit drug use. FAMILY HISTORY: Noncontributory. REVIEW OF SYSTEMS: Otherwise, unremarkable. Denies any pulmonary-related [address] [address] CONSULTATION Name: PORSHA CLARKE Room #: [address] [place] [address] [place] [facility].#: [id number] Admission: 12/04/20 Attend Phys: Surinder Huizar MD Discharge: Date of : 70 Report #: [id number] complaints. He has had some chills, anorexia. PHYSICAL EXAMINATION: GENERAL: He appears ill, not overtly toxic, moderate distress. VITAL SIGNS: Temperature 98.1, pulse 75, respirations 20, blood pressure 107/59. SKIN: Warm, dry, no rashes. HEENT: Does have some asymmetrical swelling, left compared to right involving the left maxillary site. There is a significant induration associated. There is no overt fluctuance. There is no drainage or ulcer at this point. No bullous lesion. NECK: Supple. LUNGS: Diminished, otherwise clear breath sounds. HEART: Regular. I do not appreciate a murmur. ABDOMEN: Soft, nontender, mildly distended. GENITOURINARY AND RECTAL: Deferred. LABORATORY DATA: Cultures as described above. Electrolytes: Sodium 134, potassium 3.6, chloride 103, bicarbonate is 23, anion gap of 8, BUN and creatinine 9 and 1.1, glucose of 111. LFTs unremarkable. Albumin ____, total protein 6.8, estimated GFR of 71. CBC: White count of 700. On followup H and H 10.4 and 30.3, platelets of 139. Initial testing showed H and H 13.1 and 38.7, platelets of 179. As mentioned above, ANC of 100. CT facial bones as described above. Cellulitis and possible phlegmon, left facial inflammatory process and patient with neutropenia, it is not entirely clear. ASSESSMENT AND PLAN: Possible diagnosis of Oscar's, although this has not been confirmed as ongoing neutropenia at this point likely present without significant amount of purulence given the low numbers of white cells. Continue empiric therapy with vancomycin and clindamycin. POSSIBLE PENICILLIN ALLERGY. Noted ENT to evaluate, may well need intervention. Try warm moist heat, try to localize, may be additional diagnostic testing required. He notes in September did undergo bone marrow biopsy, which was otherwise nondiagnostic. Could consider having a repeat Hematology/Oncology evaluation. We will add incentive spirometry. <ELECTRONICALLY SIGNED> By: Rell Barth MD 12/06/20 1225 [id number] [id number] Rell Barth MD /nt
--- NOTE | 2020-12-06 14:33 | NUR ---
ON-GOING ASSESSMENT: CM REVIEWED CHART AND SPOKE WITH PATIENT. PT REMAINS ON IV FLUIDS AND IV ANBX. CM FOLLOWED UP WITH [facility] WHO REPORTS PTS MICHAELA IS SUBMITTED AND PENDING, CM NOTIFIED PATIENT. PT WILL NEED ASSISTANCE WITH MEDICAID COST AT TIME OF DISCHARGE. CM NOTIFIED ATTENDING. CM WILL CONTINUE TO FOLLOW TO ASSIST NEEDED.
[2020-12-06 17:27] VITALS: BP 113/70
[2020-12-06 20:33] VITALS: BP 123/83
--- NOTE | 2020-12-07 05:35 | NUR ---
ASSUMED PT CARE AT 1900.PT WAS OBSERVED SITTING UP IN THE RECLINER IN HIS ROOM WATCHING TV AT SHIFT CHANGE.PT C/O PAIN,MANAGED WITH MED.PT CONT ON IV ABX AND STEROIDS ORDERED.UP ADLIB IN HIS ROOM WITH A STEADY GAIT.PT NPO FOR A PROCEDURE LATER IN THE DAY.BLE DISCOLORATION NOTED.CALL LIGHT WITHIN REACH.
[2020-12-07 06:04] VITALS: BP 112/70
[2020-12-07 06:22] LABS: HEMATOCRIT 32.1 % (42.0-52.0); HEMOGLOBIN 10.9 gm/dL (14.0-18.0)
[2020-12-07 06:28] LABS: MCH 27.5 pg (26.0-34.0); MCHC 34.1 g/dL (28.0-37.0); MCV 80.8 fL (80.0-100.0); RBC 3.97 mil/uL (4.50-6.00); RDW 15.3 % (10.5-14.5)
[2020-12-07 06:37] LABS: WBC 0.5 thou/uL (4.0-11.0)
[2020-12-07] MEDS ORDERED: ELIQUIS5 MG PO (12:37)
[2020-12-07] MEDS ORDERED: MEDROLDOSEPACK PO (12:37)
[2020-12-07] MEDS ORDERED: LEVOFLOXACIN500 MG PO (12:37)
[2020-12-07] MEDS ORDERED: ZYVOX600 MG PO (15:15)
[2020-12-07] MEDS ORDERED: CIPROFLOXACIN750 MG PO (15:15)
[2020-12-07] MEDS ORDERED: ELIQUIS5 M1 PO (15:45)
--- NOTE | 2020-12-07 16:11 | NUR ---
Assumed care of pt at 0700. Pt a&ox4. Up ad loc. Pain controlled with prn pain meds. SUrgery this am. Pt back in the room. VSS. IV fluids discontiued. Pt will discharge to home.
--- NOTE | 2020-12-07 17:19 | NUR ---
on-going assessment: PT HAS ORDERS TO DISCHARGE HOME TODAY. PT NEEDS ASSISTANCE COVERING MEDICATIONS. CM GOT APPROVAL FROM CM DIRECTOR AND MEDICATIONS CAN BE VOUCHERED. CM NOTIFIED OUTPATIENT PHARMACY [phone] AND MEDS FILLED AND COVERED BY CM. CM NOTIFIED BEDSIDE RN. BEDSIDE RN SPOKE WITH PHYSICIAN WHO WANTS PATIENT ON LEVAQUIN AT DISCHARGE. VERBAL ORDER CALL IN BY BEDSIDE RN AND OUTPATIENT PHARMACY IS FILLING AND CM NOTIFIED THEM OF BEDSIDE RN CONTACT TO CALL WHEN SCRIPT IS READY. MED ASSIST ALSO SPOKE WITH PATIENT ABOUT MEDICAID/DISABILITY MICHAELA. CASE CLOSED.
[2020-12-07 22:06] LABS: COMPLEMENT-C3 102 mg/dL (82-167); COMPLEMENT-C4 10 mg/dL (12-38)
== END 2020-12-07 18:21 | disposition home or self-care (01) | DRG 135 ==
LOC: ER 18:18 → 4S 22:00 → EROBS 22:00 → 4S 23:28
PROVIDERS: Nurse Practitioner; Nurse Practitioner Family; ADMIT Hospitalist; ATTEND Hospitalist
PROC: 09CX4ZZ Extirpation of Matter from Left Sphenoid Sinus, Percutaneous Endoscopic Approach (ICD-10-PCS; principal; 2020-12-07)
PROC: 09TV4ZZ Resection of Left Ethmoid Sinus, Percutaneous Endoscopic Approach (ICD-10-PCS; principal; 2020-12-07)
PROC: 09CW4ZZ Extirpation of Matter from Right Sphenoid Sinus, Percutaneous Endoscopic Approach (ICD-10-PCS; principal; 2020-12-07)
PROC: 09B Ear, Nose, Sinus, Excision (ICD-10-PCS; principal; 2020-12-07)
PROC: 09TU4ZZ Resection of Right Ethmoid Sinus, Percutaneous Endoscopic Approach (ICD-10-PCS; principal; 2020-12-07)
DX: J34.0 Abscess, furuncle and carbuncle of nose (principal); M31.30 Wegener's granulomatosis without renal involvement; J45.909 Unspecified asthma, uncomplicated; J32.8 Other chronic sinusitis; J34.89 Other specified disorders of nose and nasal sinuses; D70.9 Neutropenia, unspecified; J32.4 Chronic pansinusitis; I73.9 Peripheral vascular disease, unspecified; I77.6 Arteritis, unspecified; Z20.822 Contact with and (suspected) exposure to COVID-19; Z28.21 Immunization not carried out because of patient refusal; Z86.711 Personal history of pulmonary embolism; Z88.0 Allergy status to penicillin
CPT/HCPCS: 10195; 50010; 50101

== ENCOUNTER 2021-01-04 22:44 | Emergency (ER) | payer OTHER ==
[~2021-01-04] VITALS: Ht 185.4 cm; Wt 110.2 kg
[~2021-01-04 22:44] MED LIST changes: +CIPROFLOXACIN750 MG PO; +ELIQUIS5 MG PO; +LEVOFLOXACIN500 MG PO; +ZYVOX600 MG PO
[2021-01-04 22:53] VITALS: BP 151/93
== END 2021-01-04 23:49 | disposition home or self-care (01) ==
LOC: ER 22:44
DX: R04.0 Epistaxis (principal); J45.909 Unspecified asthma, uncomplicated; Z79.01 Long term (current) use of anticoagulants; Z88.0 Allergy status to penicillin

== ENCOUNTER 2021-01-07 20:30 | Emergency (ER) | payer OTHER ==
[~2021-01-07] VITALS: Ht 185.4 cm; Wt 112.5 kg
[2021-01-07 20:46] VITALS: BP 140/83
== END 2021-01-07 22:00 ==
LOC: ER 20:30
DX: R06.02 Shortness of breath (principal); J45.909 Unspecified asthma, uncomplicated; Z86.711 Personal history of pulmonary embolism; Z88.0 Allergy status to penicillin

== ENCOUNTER 2021-01-13 22:23 | Emergency (ER) | payer OTHER ==
[~2021-01-13] VITALS: Ht 185.4 cm; Wt 113.4 kg
[2021-01-13 22:28] VITALS: BP 121/88
[2021-01-14] MEDS ORDERED: PREDNISONE 20 M20 MG PO (13:58)
[2021-01-14] MEDS ORDERED: PROAIR HFA8.5 GM INH (13:58)
== END 2021-01-13 22:40 ==
LOC: ER 22:23
DX: E86.0 Dehydration (principal); R05 Cough; R09.3 Abnormal sputum; Z53.21 Procedure and treatment not carried out due to patient leaving prior to being seen by health care provider

== ENCOUNTER 2021-01-14 09:26 | Emergency (ER) | payer OTHER ==
[~2021-01-14] VITALS: Ht 185.4 cm; Wt 112.5 kg
[2021-01-14 10:30] LABS: RBC 4.61 mil/uL (4.50-6.00)
[2021-01-14 10:32] LABS: HEMATOCRIT 38.8 % (42.0-52.0); HEMOGLOBIN 12.9 gm/dL (14.0-18.0); MCHC 33.3 g/dL (28.0-37.0); MCV 84.1 fL (80.0-100.0); PLATELET COUNT 159 thou/uL (150-400); RDW 15.7 % (10.5-14.5)
[2021-01-14 10:35] LABS: ANION GAP 7 mmol/L (7-16); BUN 16 mg/dL (7-18); CALCIUM 8.3 mg/dL (8.5-10.1); CHLORIDE 105 mmol/L (98-107); CO2 29 mmol/L (21-32); CREATININE 1.2 mg/dL (0.7-1.3); GLUCOSE 133 mg/dL (74-106); SODIUM 141 mmol/L (136-145)
[2021-01-14 10:36] LABS: WBC 1.3 thou/uL (4.0-11.0)
[2021-01-14 10:45] LABS: ALBUMIN 3.6 g/dL (3.4-5.0); SGOT 20 U/L (15-37); SGPT 38 U/L (16-63); TOTAL BILIRUBIN 0.7 mg/dL (0.2-1.0); TOTAL PROTEIN 7.5 g/dL (6.4-8.2); TROPONIN-I <0.06 ng/mL (<0.06)
[2021-01-14 12:28] LABS: ABSOLUTE NEUTROPHILS 0.1 thou/uL (1.4-8.2); ATYPICAL LYMPHS 14 %; PLATELET ESTIMATE NORMAL
[2021-01-14 12:29] LABS: BLASTS 0 %
[2021-01-14] MEDS ORDERED: PROAIR HFA8.5 GM INH (13:58)
[2021-01-14] MEDS ORDERED: PREDNISONE 20 M20 MG PO (13:58)
[2021-01-14 14:20] VITALS: BP 109/42
--- NOTE | 2021-01-15 08:43 | EKG ---
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: YUDELKA : 1970 Requested By: Adeola Hernandez Order Number: [id number] MD: Karel Carver Measurements Intervals [place] Rate: 68 P: 12 RI: 144 QRS: -70 QRSD: 100 T: 34 QT: 611 QTc: 651 Interpretive Statements Sinus rhythm LAD, consider left anterior fascicular block RSR' in V1 or V2, right VCD or RVH Prolonged QT interval Compared to ECG 09/14/2020 17:30:47 Right ventricular hypertrophy now present RSR' in V1 or V2 now present Prolonged QT interval now present Myocardial infarct finding no longer present Electronically Signed On 01-15-2021 8:43:37 CDT by Karel Carver [email or web address] <ELECTRONICALLY SIGNED> By: Karel Carver MD, [facility] 01/15/21 [id number] Karel Carver MD, [facility] /EPI
== END 2021-01-14 14:21 | disposition home or self-care (01) ==
LOC: ER 09:26
PROVIDERS: Emergency Medicine
DX: J98.01 Acute bronchospasm (principal); Z20.822 Contact with and (suspected) exposure to COVID-19; D70.9 Neutropenia, unspecified; R19.7 Diarrhea, unspecified; Z86.14 Personal history of Methicillin resistant Staphylococcus aureus infection; I73.9 Peripheral vascular disease, unspecified; Z79.899 Other long term (current) drug therapy; Z88.0 Allergy status to penicillin

== ENCOUNTER 2021-02-01 19:17 | Emergency (ER) | payer OTHER ==
[~2021-02-01] VITALS: Ht 185.4 cm; Wt 113.4 kg
[~2021-02-01 19:17] MED LIST changes: +PROAIR HFA8.5 GM INH
[2021-02-01 19:21] VITALS: BP 119/88
[2021-02-01 20:11] LABS: ANION GAP 12 mmol/L (7-16); BUN 10 mg/dL (7-18); CALCIUM 8.4 mg/dL (8.5-10.1); CHLORIDE 105 mmol/L (98-107); CO2 25 mmol/L (21-32); GLUCOSE 106 mg/dL (74-106); POTASSIUM 3.6 mmol/L (3.5-5.1); SODIUM 142 mmol/L (136-145)
[2021-02-01 20:19] LABS: ALBUMIN 3.9 g/dL (3.4-5.0); SGOT 14 U/L (15-37); SGPT 38 U/L (16-63); TOTAL BILIRUBIN 0.7 mg/dL (0.2-1.0); TOTAL PROTEIN 7.6 g/dL (6.4-8.2); TROPONIN-I <0.06 ng/mL (<0.06)
--- NOTE | 2021-02-02 13:11 | EKG ---
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
== END 2021-02-01 20:32 | disposition left against medical advice (07) ==
LOC: ER 19:17
PROVIDERS: Emergency Medicine
DX: R06.02 Shortness of breath (principal); J45.909 Unspecified asthma, uncomplicated; Z88.0 Allergy status to penicillin; Z79.899 Other long term (current) drug therapy; Z98.890 Other specified postprocedural states

== ENCOUNTER 2021-03-21 10:09 | Emergency (ER) | payer OTHER ==
[~2021-03-21] VITALS: Ht 185.4 cm; Wt 113.4 kg
[2021-03-21 10:16] VITALS: BP 148/75
[2021-03-21 11:18] LABS: HEMOGLOBIN 14.2 gm/dL (14.0-18.0); MCH 28.3 pg (26.0-34.0); MCHC 33.8 g/dL (28.0-37.0); MCV 83.8 fL (80.0-100.0); RBC 5.02 mil/uL (4.50-6.00); RDW 14.4 % (10.5-14.5); WBC 2.3 thou/uL (4.0-11.0)
[2021-03-21 11:30] LABS: ANION GAP 5 mmol/L (7-16); BUN 11 mg/dL (7-18); CALCIUM 8.3 mg/dL (8.5-10.1); CHLORIDE 105 mmol/L (98-107); CO2 30 mmol/L (21-32); CREATININE 1.3 mg/dL (0.7-1.3); GLUCOSE 125 mg/dL (74-106); POTASSIUM 3.8 mmol/L (3.5-5.1); SODIUM 140 mmol/L (136-145)
[2021-03-21 11:41] LABS: ALBUMIN 3.8 g/dL (3.4-5.0); SGOT 17 U/L (15-37); SGPT 31 U/L (16-63); TOTAL BILIRUBIN 0.8 mg/dL (0.2-1.0); TOTAL PROTEIN 7.8 g/dL (6.4-8.2); TROPONIN-I <0.06 ng/mL (<0.06)
[2021-03-21] MEDS ORDERED: PREDNISONE 20 M20 MG PO (13:41)
[2021-03-21] MEDS ORDERED: DOXYCYCLINE 10100 MG PO (13:41)
[2021-03-21] MEDS ORDERED: PROAIR HFA8.5 GM INH (13:41)
[2021-03-21 18:23] VITALS: BP 121/77
== END 2021-03-21 18:23 | disposition left against medical advice (07) ==
LOC: ER 10:09 → EROBS 16:17 → ER 18:23
PROVIDERS: Student in an Organized Health Care Education/Training Program
DX: J44.1 Chronic obstructive pulmonary disease with (acute) exacerbation (principal); J18.9 Pneumonia, unspecified organism; J45.909 Unspecified asthma, uncomplicated; I73.9 Peripheral vascular disease, unspecified; Z88.0 Allergy status to penicillin; Z20.822 Contact with and (suspected) exposure to COVID-19

== ENCOUNTER → 2021-04-08 | Emergency (ER) | payer OTHER ==
[2021-04-08 16:00] VITALS: BP 119/79
--- NOTE | 2021-04-09 07:49 | EKG ---
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: CHAKA : 1970 Requested By: Carlos Santiago Order Number: [id number] MD: Karel Carver Measurements Intervals [place] Rate: 65 P: 14 ID: 167 QRS: -63 QRSD: 102 T: 117 QT: 412 QTc: 429 Interpretive Statements Sinus rhythm RSR' in V1 or V2, probably normal variant Inferior infarct, old Lateral leads are also involved Compared to ECG 02/01/2021 19:48:52 RSR' in V1 or V2 now present Myocardial infarct finding still present Electronically Signed On 04-09-2021 7:48:59 CDT by Karel Carver [email or web address] <ELECTRONICALLY SIGNED> By: Karel Carver MD, [facility] 04/09/21 0748 1604 1604 Karel Carver MD, [facility] /EPI
== END ==
LOC: ER 15:58
DX: R05 Cough (principal); J45.909 Unspecified asthma, uncomplicated; I73.9 Peripheral vascular disease, unspecified; K50.90 Crohn's disease, unspecified, without complications; Z88.0 Allergy status to penicillin; Z20.822 Contact with and (suspected) exposure to COVID-19

== ENCOUNTER 2021-09-13 13:34 | Emergency (ER) | payer OTHER ==
[~2021-09-13] VITALS: Ht 185.4 cm; Wt 113.4 kg
[2021-09-13 13:36] VITALS: BP 137/75
== END 2021-09-13 14:33 | disposition home or self-care (01) ==
LOC: ER 13:34
DX: U07.1 COVID-19 (principal); J45.909 Unspecified asthma, uncomplicated; I73.9 Peripheral vascular disease, unspecified; Z86.718 Personal history of other venous thrombosis and embolism; Z98.890 Other specified postprocedural states; Z79.51 Long term (current) use of inhaled steroids; Z79.899 Other long term (current) drug therapy; Z88.0 Allergy status to penicillin

== ENCOUNTER 2021-09-19 10:25 | Emergency (ER) | payer OTHER ==
[~2021-09-19] VITALS: Ht 185.4 cm; Wt 108.9 kg
[2021-09-19 11:01] LABS: HEMOGLOBIN 14.5 gm/dL (14.0-18.0); MCH 29.2 pg (26.0-34.0); MCHC 34.4 g/dL (28.0-37.0); MCV 84.9 fL (80.0-100.0); PLATELET COUNT 172 thou/uL (150-400); RBC 4.95 mil/uL (4.50-6.00); RDW 13.3 % (10.5-14.5); WBC 2.6 thou/uL (4.0-11.0)
[2021-09-19 11:17] LABS: ANION GAP 12 mmol/L (7-16); BUN 16 mg/dL (7-18); CALCIUM 8.2 mg/dL (8.5-10.1); CHLORIDE 105 mmol/L (98-107); CO2 24 mmol/L (21-32); CREATININE 0.8 mg/dL (0.7-1.3); GLUCOSE 123 mg/dL (74-106); POTASSIUM 4.1 mmol/L (3.5-5.1); SODIUM 141 mmol/L (136-145)
[2021-09-19 11:26] LABS: ALBUMIN 3.5 g/dL (3.4-5.0); SGOT < 5 U/L (15-37); SGPT 16 U/L (30-65); TOTAL BILIRUBIN 1.2 mg/dL (0.2-1.0); TOTAL PROTEIN 7.5 g/dL (6.4-8.2)
[2021-09-19 11:41] VITALS: BP 122/86
[2021-09-19 11:50] LABS: ABSOLUTE NEUTROPHILS 1.6 thou/uL (1.4-8.2); ATYPICAL LYMPHS 1 %
--- NOTE | 2021-09-19 15:39 | EKG ---
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: Martha SERRA : 1970 Requested By: Lynn Pearce Order Number: [id number] MD: Karel Carver Measurements Intervals [place] Rate: 76 P: 9 [place]: 150 QRS: -71 QRSD: 97 T: 56 QT: 372 QTc: 419 Interpretive Statements Sinus rhythm RSR' in V1 or V2, probably normal variant Inferior infarct, old Lateral leads are also involved Baseline wander in lead(s) V6 Compared to ECG 04/08/2021 16:04:37 No significant changes Electronically Signed On 09-19-2021 15:38:53 [employer] by Karel Carver [email or web address] <ELECTRONICALLY SIGNED> By: Karel Carver MD, [facility] 09/19/21 1538 1037 1037 Karel Carver MD, [facility] /EPI
== END 2021-09-19 12:17 | disposition left against medical advice (07) ==
LOC: ER 10:25
PROVIDERS: Emergency Medicine
DX: U07.1 COVID-19 (principal); R51.9 Headache, unspecified; H53.143 Visual discomfort, bilateral; J45.909 Unspecified asthma, uncomplicated; I73.9 Peripheral vascular disease, unspecified; Z98.890 Other specified postprocedural states; Z86.718 Personal history of other venous thrombosis and embolism; Z79.51 Long term (current) use of inhaled steroids; Z79.899 Other long term (current) drug therapy; Z88.0 Allergy status to penicillin

== ENCOUNTER 2021-10-16 19:18 | Emergency (ER) | payer OTHER ==
[~2021-10-16] VITALS: Ht 185.4 cm; Wt 113.4 kg
[2021-10-16 19:42] VITALS: BP 145/61
== END 2021-10-16 21:45 | disposition home or self-care (01) ==
LOC: ER 19:18
DX: S63.502A Unspecified sprain of left wrist, initial encounter (principal); R51.9 Headache, unspecified; J45.909 Unspecified asthma, uncomplicated; I73.9 Peripheral vascular disease, unspecified; Z86.16 Personal history of COVID-19; Z98.890 Other specified postprocedural states; Z86.718 Personal history of other venous thrombosis and embolism; Z86.711 Personal history of pulmonary embolism; Z88.0 Allergy status to penicillin; V49.9XXA Car occupant (driver) (passenger) injured in unspecified traffic accident, initial encounter; Y93.89 Activity, other specified; Y92.89 Other specified places as the place of occurrence of the external cause; Y99.8 Other external cause status